=== PATIENT | female | born 1985 | race Caucasian/White ===

== ENCOUNTER → 2021-05-21 13:11 | Outpatient (CLI) | payer SELFPAY ==
--- NOTE | 2021-05-21 13:21 | US_ITS ---
INDICATION: SUPERVISION OF NORMAL EXAMINATION: Ultrasound US OB Complete W/ Detail single or first gestation TECHNIQUE: Transabdominal and transvaginal pelvic ultrasound was performed. COMPARISON: None. LMP: 11/15/2020. Beta-hCG: Unknown. Provided EGA: 26 weeks 5 days. Expected due date by LMP: 08/22/2021. FINDINGS: INTRAUTERINE GESTATION(s): Single. ESTIMATED GESTATIONAL AGE: 26 weeks 3 days ESTIMATED DUE DATE (REGAN): 08/24/2021 HEART MOTION is 155 bpm. BIOMETRIC MEASUREMENTS: HEAD CIRCUMFERENCE: 24.88 cm which corresponds to 27 weeks 0 days. BIPARIETAL DIAMETER: 6.75 cm which corresponds to [27 weeks and 1day]. ABDOMINAL CIRCUMFERENCE: 22.95 cm which corresponds to 27 weeks and 2 days. FEMORAL LENGTH: 4.58 cm which corresponds to 25 weeks and 1 day. ESTIMATED DUE DATE (REGAN): 08/24/2021 ESTIMATED WEIGHT: 961 g +/- 144 g 34.6 percentile PRESENTATION: Breech AMNIOTIC FLUID INDEX (CRISTINA): 19.88, largest fluid pocket measures 6.7 x 4.0 cm. BIOPHYSICAL PROFILE (BPP): Not assessed. PLACENTA: Posterior. There is no placenta previa or abruption. CERVIX: The cervix is closed. Cervical length 4.5 cm. ANATOMY: LATERAL VENTRICLES: 0.86 cm transverse diameter. CHOROID PLEXUS: Right choroid plexus is suboptimally evaluated. MIDLINE FALX: Visualized. CAVUM SEPTUM PELLUCIDI: Visualized. CEREBELLUM: Unremarkable measuring 2.03 cm consistent with 26 weeks 2 days. CISTERNA MAGNA: Is visualized measuring 0.81 cm. UPPER LIP: Intact. FOUR CHAMBER HEART VIEW: Unremarkable. LEFT VENTRICULAR OUTFLOW TRACT: Visualized. RIGHT VENTRICULAR OUTFLOW TRACT: Visualized. STOMACH: Visualized. KIDNEYS: Visualized, no hydronephrosis. URINARY BLADDER: Visualized. UMBILICAL CORD INSERTION into the abdomen: Unremarkable. UMBILICAL CORD vessel number: Normal three vessel cord. SPINE: Unremarkable. No posterior spinal defect observed. UPPER AND LOWER EXTREMITIES: Present. GENDER: Male US/OB Anatomy Scan IMPRESSION: Single live intrauterine with an estimated gestational age of 26 weeks and 3 days Mild prominence of the transverse diameter of the lateral ventricle measuring 0.86 cm, recommend follow-up evaluation.. Electronically Signed: Juan Pablo Aguila MD at 16:56 EDT Tel , Service support ,
== END ==
DX: Z34.92 Encounter for supervision of normal pregnancy, unspecified, second trimester (principal)
CPT/HCPCS: 76805; 76817